=== PATIENT | female | born 1930 | race Caucasian/White ===

== ENCOUNTER 2016-10-19 14:55 | Outpatient (CLI) | payer MEDICARE ==
[2016-10-19 16:21] LABS: #Basophils 0.1 thou/uL (0.0-0.2); #Eosinphils 0.2 thou/uL (0.0-0.7); #Monocytes 0.7 thou/uL (0.11-0.59); #Neutrophils 3.3 thou/uL (1.40-6.50); %Basophils 2.1 % (0.0-1.0); %Eosinophils 3.2 % (0.0-10.0); %Lymphocytes 30.9 % (21.0-51.0); %Neutrophils 52.8 % (42.0-75.0); Hemoglobin 15.9 g/dL (12.0-16.0); Mean Corpuscular HGB CONC 33.2 g/dL (32.0-36.0); Mean Corpuscular Hemoglobin 31.2 pg (27.0-31.0); Mean Platelet Volume 7.2 fL (7.4-10.4); Platelet Count 240 thou/uL (130-400); RBC Distribution Width 11.6 % (11.5-14.5); Red Blood Cell (RBC) Count 5.09 mill/uL (4.20-5.40); White Blood Cell (WBC) Count 6.3 thou/uL (4.8-10.8)
[2016-10-19 16:35] LABS: ALT (SGPT) 17 U/L (8-55); AST (SGOT) 18 U/L (5-34); Alkaline Phosphatase 68 U/L (40-150); Anion Gap 15 mmol/L (10-20); BUN (Urea Nitrogen) 14 mg/dL (9.8-20.1); Bilirubin, Total 0.6 mg/dL (0.2-1.2); Calc. Creatinine Clearance 0 mL/min (70-130); Calcium 9.4 mg/dL (7.8-10.44); Carbon Dioxide 27 mmol/L (23-31); Cardiac Risk 3.8 (Less than 4.5); Chloride 101 mmol/L (98-107); Cholesterol 150 mg/dl (< 200 Desired); Estimated GFR-MDRD 70; Glucose 91 mg/dL (83-110); HDL Cholesterol 39 mg/dL (>60 Neg Risk); LDL Cholesterol, Calculated 86 mg/dL; Potassium 5.4 mmol/L (3.5-5.1); Sodium 138 mmol/L (136-145); Triglycerides 126 mg/dL (Less than 150)
== END 2016-10-19 14:56 | disposition home or self-care (01) ==
LOC: LABLEX 14:55
PROVIDERS: ATTEND Family Medicine
DX: E78.5 Hyperlipidemia, unspecified (principal); I10 Essential (primary) hypertension; R09.89 Other specified symptoms and signs involving the circulatory and respiratory systems
CPT/HCPCS: 80053; 80061; 84443; 85025

== ENCOUNTER 2019-07-04 08:32 | Emergency (ER) | payer MEDICARE ==
--- NOTE | 2019-07-04 09:29 | CT ---
Exam: Head CT without contrast HISTORY: Fall. Trauma. COMPARISON: none FINDINGS: Hemorrhage: No intraparenchymal hemorrhage or extra-axial hematoma. Brain parenchyma: Cortical ruiz-white matter differentiation is preserved. No mass effect or midline shift. Basilar cisterns are patent.Scattered white matter hypodensities, periventricular in location. Findings are compatible with chronic small vessel ischemic change. Ventricular system: Ventricles and sulci are patent and symmetric. Calvarium: Calvarium is intact. Right frontal scalp hematoma. Overlying bandage material is noted. Sinuses and mastoid air cells: Adequate aeration. IMPRESSION: 1. Right frontal scalp post traumatic change. Intact calvarium 2. No intracranial post traumatic sequelae.
[2019-07-04] MEDS ORDERED: Adacel (T-DAP) 0.5 ML SYRINGE ONE (10:17)
--- NOTE | 2019-07-04 15:57 | RAD ---
RIGHT WRIST THREE VIEWS: 07/04/19 No fracture was seen. There is probably and old injury to the base of the first metacarpal with resul ting severe arthritic change in the first carpometacarpal joint There is some lateral subluxation of the first metacarpal compared to the trapezium. The other carpal bones appear normal. 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 POS: HOME
== END 2019-07-04 10:40 | disposition home or self-care (01) ==
LOC: BURERS 08:32
DX: S01.01XA Laceration without foreign body of scalp, initial encounter (principal); E78.5 Hyperlipidemia, unspecified; E78.00 Pure hypercholesterolemia, unspecified; I10 Essential (primary) hypertension; M06.9 Rheumatoid arthritis, unspecified; Z79.899 Other long term (current) drug therapy; Z79.82 Long term (current) use of aspirin; Z23 Encounter for immunization; W22.8XXA Striking against or struck by other objects, initial encounter; Y92.091 Bathroom in other non-institutional residence as the place of occurrence of the external cause
CPT/HCPCS: 12001; 70450; 90471; 90715; 93005

== ENCOUNTER 2020-03-11 16:52 | Emergency (ER) | payer MEDICARE, OTHER ==
[2020-03-11 17:32] LABS: #Basophils 0.2 thou/uL (0.0-0.2); #Eosinphils 0.1 thou/uL (0.0-0.7); #Lymphocytes 2.4 thou/uL (1.20-3.40); #Monocytes 0.8 thou/uL (0.11-0.59); #Neutrophils 5.7 thou/uL (1.40-6.50); %Basophils 1.7 % (0.0-1.0); %Eosinophils 1.2 % (0.0-10.0); %Lymphocytes 26.4 % (21.0-51.0); %Monocytes 8.9 % (0.0-10.0); %Neutrophils 61.8 % (42.0-75.0); Hemoglobin 14.8 g/dL (12.0-16.0); Mean Corpuscular HGB CONC 32.8 g/dL (32.0-36.0); Mean Corpuscular Hemoglobin 31.1 pg (27.0-31.0); Mean Corpuscular Volume 94.9 fL (78.0-98.0); Mean Platelet Volume 7.4 fL (7.4-10.4); Platelet Count 233 thou/uL (130-400); RBC Distribution Width 11.4 % (11.5-14.5); Red Blood Cell (RBC) Count 4.75 mill/uL (4.20-5.40); White Blood Cell (WBC) Count 9.2 thou/uL (4.8-10.8)
[2020-03-11 17:37] LABS: INR-International Normal Ratio 1.1; PTT 34.7 sec (22.9-36.1); Prothrombin Time 15.1 sec (12.0-14.7)
[2020-03-11 17:43] LABS: ALT (SGPT) 16 U/L (8-55); AST (SGOT) 12 U/L (5-34); Albumin 3.7 g/dL (3.4-4.8); Alkaline Phosphatase 59 U/L (40-110); Anion Gap 14 mmol/L (10-20); BUN (Urea Nitrogen) 19 mg/dL (9.8-20.1); Bilirubin, Total 0.5 mg/dL (0.2-1.2); Calc. Creatinine Clearance 0 mL/min (70-130); Calcium 8.8 mg/dL (7.8-10.44); Carbon Dioxide 24 mmol/L (23-31); Chloride 104 mmol/L (98-107); Estimated GFR-MDRD 64; Globulin 2.5 g/dL (2.4-3.5); Glucose 116 mg/dL (83-110); Potassium 4.5 mmol/L (3.5-5.1); Protein, Total 6.2 g/dL (6.0-8.3); Sodium 137 mmol/L (136-145)
[2020-03-11] MEDS ORDERED: Pantoprazole 40 MG VIAL ONE (18:01)
--- NOTE | 2020-03-12 07:45 | RAD ---
PORTABLE CHEST: Date: 03-11-2020 Comparison: 09-19-14 FINDINGS: The heart is normal in size today. Dense mitral annular calcifications are noted. There is no vascula r congestion or edema. A slight rounding of the right hilum appears to be due to the right pulmonary artery, made more prominent by the patient being turned to the left. No major lobar infiltrate was se en. There are a few linear streaks in the lingula on the left. These may be scarring. No major infilt rate or effusion was seen. A right shoulder arthroplasty has occurred since the prior exam. The left humeral head shows severe flattening and degenerative change that has occurred in the interval. IMPRESSION: No definite acute thoracic findings. POS: HOME
== END 2020-03-11 19:04 | disposition short-term general hospital (02) ==
LOC: BURERS 16:52
DX: K92.2 Gastrointestinal hemorrhage, unspecified (principal); R55 Syncope and collapse; E78.5 Hyperlipidemia, unspecified; E78.00 Pure hypercholesterolemia, unspecified; I10 Essential (primary) hypertension; M06.9 Rheumatoid arthritis, unspecified; Z79.899 Other long term (current) drug therapy
CPT/HCPCS: 36415; 71045; 80053; 83880; 84484; 85025; 85610; 85730; 86850; 86900; 86901; 93005; 94760; 96374; C9113

== ENCOUNTER 2020-07-18 08:32 | Emergency (ER) | payer MEDICARE, OTHER ==
[2020-07-18 09:27] LABS: #Basophils 0.1 thou/uL (0.0-0.2); #Eosinphils 0.1 thou/uL (0.0-0.7); #Lymphocytes 1.4 thou/uL (1.20-3.40); #Monocytes 0.8 thou/uL (0.11-0.59); #Neutrophils 3.3 thou/uL (1.40-6.50); %Basophils 1.9 % (0.0-1.0); %Eosinophils 2.3 % (0.0-10.0); %Lymphocytes 24.5 % (21.0-51.0); %Neutrophils 57.3 % (42.0-75.0); Hemoglobin 15.2 g/dL (12.0-16.0); Mean Corpuscular HGB CONC 31.3 g/dL (32.0-36.0); Mean Corpuscular Hemoglobin 27.9 pg (27.0-31.0); Mean Corpuscular Volume 89.2 fL (78.0-98.0); Mean Platelet Volume 7.4 fL (7.4-10.4); Platelet Count 231 thou/uL (130-400); RBC Distribution Width 14.8 % (11.5-14.5); Red Blood Cell (RBC) Count 5.42 mill/uL (4.20-5.40); White Blood Cell (WBC) Count 5.7 thou/uL (4.8-10.8)
[2020-07-18 09:33] LABS: ALT (SGPT) 12 U/L (8-55); AST (SGOT) 14 U/L (5-34); Albumin 3.9 g/dL (3.4-4.8); Alkaline Phosphatase 70 U/L (40-110); Anion Gap 11 mmol/L (10-20); BUN (Urea Nitrogen) 13 mg/dL (9.8-20.1); Bilirubin, Total 0.5 mg/dL (0.2-1.2); Calc. Creatinine Clearance 0 mL/min (70-130); Calcium 8.9 mg/dL (7.8-10.44); Carbon Dioxide 27 mmol/L (23-31); Chloride 104 mmol/L (98-107); Globulin 2.7 g/dL (2.4-3.5); Glucose 101 mg/dL (83-110); Potassium 4.2 mmol/L (3.5-5.1); Protein, Total 6.6 g/dL (5.8-8.1); Sodium 138 mmol/L (136-145)
[2020-07-18] MEDS ORDERED: Meclizine HCl 25 MG TAB ONE (09:55)
[2020-07-18 10:16] LABS: Bilirubin Negative (Negative); Blood, Urine Negative (Negative); Clarity Clear (Clear); Glucose, Urine (Dipstick) Negative (Negative); Ketone, Urine Negative (Negative); Leukocyte Negative (Negative); Nitrite Negative (Negative); Protein, Urine (Dipstick) Negative (Neg-Trace); Specific Gravity, Urine 1.015 (1.005-1.030); Urobilinogen 0.2 mg/dL (Less than 2)
== END 2020-07-18 11:40 | disposition home or self-care (01) ==
LOC: BURERS 08:32
DX: R53.1 Weakness (principal); R42 Dizziness and giddiness; I10 Essential (primary) hypertension; E78.5 Hyperlipidemia, unspecified; E78.00 Pure hypercholesterolemia, unspecified; M06.9 Rheumatoid arthritis, unspecified; R29.700 NIHSS score 0; Z79.899 Other long term (current) drug therapy
CPT/HCPCS: 70450; 71045; 80053; 81003; 83880; 84484; 85025; 93005